=== PATIENT | female | born 1960 | race Caucasian/White ===

== ENCOUNTER 2019-03-12 15:16 | Emergency (ER) | payer BC ==
[2019-03-12] MEDS ORDERED: HYDROmorphone 1 MG/ML Syringe IVPUSH ONE (15:52)
--- NOTE | 2019-03-12 15:52 | EDM.PDOC ---
ED HPI GENERAL MEDICAL PROBLEM - General Chief Complaint: General Stated Complaint: KIDNEY STONE Time Seen by Provider: 03/12/19 15:20 - History of Present Illness INITIAL COMMENTS - FREE TEXT/NARRATIVE: 58-year-old female reports warts to the emergency room with complaints of pain nausea vomiting and flank pain. She was seen February 19 with flank pain nausea and vomiting and a CT scan showed a calculus on the right ureter. She has follow -up appointment with urology this coming Friday. She's had a reoccurrence today of her flank pain I once again. She reports no change in her symptoms from prior. She states that this feels just like her acute episode she had on 19 February. She did have some pain medications at home she's been taking hydrocodone and Zofran ODT for nausea. Her pain has been on the right side and is now radiated into her groin. She has mild nausea at this time. She reports colicky pain rating it a 8 out of 10. She denies any current blood in her urine. Onset: Today Onset Date: 03/12/19 Duration: Hour(s):, Recurring Location: Reports: Back (Right flank), Radiates to (Right groin) Quality: Reports: Same as Previous Episode Severity: Severe Improves with: Reports: None Worsens with: Reports: None Context: Reports: Activity Associated Symptoms: Reports: Nausea/Vomiting Treatments SHIP FASTENER: Reports: Other Medication(s) Right Lower Abdomen Pain Score (Numeric/FACES): 7 - Related Data Allergies Allergy/AdvReac Type Severity Reaction Status Date / Time No Known Allergies Allergy Verified 03/12/19 15:29 Home Meds: Home Meds Acetaminophen/HYDROcodone [[place] 325-5 MG] 1 tab PO Q6H 03/12/19 [History] DULoxetine HCl [Cymbalta] 60 mg PO DAILY 03/12/19 [History] Estrogens, Conjugated [Premarin] 0.625 mg PO DAILY 03/12/19 [History] Furosemide [Lasix] 20 mg PO DAILY PRN 03/12/19 [History] Ibuprofen [Ibu] 800 mg PO TIDMEALS 03/12/19 [History] Lisinopril [Zestril] 10 mg PO DAILY 03/12/19 [History] Ondansetron [Ondansetron ODT] 4 mg PO Q6H PRN 03/12/19 [History] Simvastatin 20 mg PO BEDTIME 03/12/19 [History] Tamsulosin HCl 0.4 mg PO DAILY 03/12/19 [History] Ustekinumab [Stelara] 45 mg SQ Q14D 03/12/19 [History] metFORMIN HCl [Metformin HCl ER] 500 mg PO DAILY 03/12/19 [History] polyethylene glycoL 3350 [MiraLAX] 17 gm PO DAILY PRN 03/12/19 [History] ED ROS GENERAL - Review of Systems Review Of Systems: Comprehensive ROS is negative, except as noted in HPI. ED EXAM, GENERAL - Physical Exam Exam: See Below Exam Limited By: No Limitations General Appearance: Alert, WD/WN, Moderate Distress Ears: Hearing Grossly Normal Throat/Mouth: Normal Voice, No Airway Compromise Head: Atraumatic, Normocephalic Neck: Normal Inspection, Supple Respiratory/Chest: No Respiratory Distress, Lungs Clear Cardiovascular: Regular Rate, Rhythm GI/Abdominal: Soft, Non-Tender, No Distention Back Exam: Normal Inspection, Full Range of Motion, CVA Tenderness (R) Extremities: Normal Inspection, Normal Range of Motion Neurological: Alert, Oriented, No Motor/Sensory Deficits Psychiatric: Normal Affect, Normal Mood Skin Exam: Warm, Dry, Intact, Normal Color, No Rash Lymphatic: No Adenopathy Course - Vital Signs Last Recorded V/S: Last Vital Signs Temp 98.4 F 03/12/19 15:19 Pulse 111 H 03/12/19 15:19 Resp 20 03/12/19 15:19 BP 145/91 H 03/12/19 15:19 Pulse Ox 98 03/12/19 15:19 - Orders/Labs/Meds Orders: Active Orders 24 hr Category Date Time Status CULTURE URINE [RM] Stat Lab 03/12/19 16:55 Received Sodium Chloride 0.9% [Normal Saline] 500 ml Med 03/12/19 16:00 Active IV .BOLUS Medication Orders Sodium Chloride (Normal Saline) 500 mls @ 1,000 mls/hr IV .BOLUS KANDIS Last Admin: 03/12/19 16:00 Dose: 1,000 mls/hr Labs: Laboratory Tests 03/12/19 Range/Units 16:55 Specimen Type Urincc Urine Color Light yellow (YELLOW) Urine Appearance Slightly cloudy H (CLEAR) Urine pH 6.0 (5.0-9.0) Ur Specific [place] 1.015 (1.005-1.030) Urine Protein Negative (NEGATIVE) mg/dL Urine Glucose (UA) Negative (NEGATIVE) mg/dL Urine Ketones Negative (NEGATIVE) mg/dL Urine Occult Blood Large H (NEGATIVE) Urine Nitrite Negative (NEGATIVE) Urine Bilirubin Negative (NEGATIVE) Urine Urobilinogen 0.2 (0.2-1.0) E.U./dL Ur Leukocyte Esterase Small H (NEGATIVE) Urine RBC 50-75 H (0-5) /HPF Urine WBC 10-20 H (0-5) /HPF Ur Epithelial Cells Moderate H /LPF Other Crystals Occasional /HPF Urine Bacteria Few (NONE TO FEW) /HPF Hyaline Casts Few H (NEGATIVE) /LPF Urine Mucus Moderate H (NEGATIVE) /LPF Meds: Medications Generic Name Dose Route Start Last Admin Trade Name Freq PRN Reason Stop Dose Admin Sodium Chloride 500 mls @ 1,000 mls/hr 03/12/19 16:00 03/12/19 16:00 Normal Saline IV 1,000 mls/hr .BOLUS KANDIS Administration Discontinued Medications Generic Name Dose Route Start Last Admin Trade Name Freq PRN Reason Stop Dose Admin Diphenhydramine HCl 50 mg 03/12/19 16:49 03/12/19 17:04 Benadryl PO 03/12/19 16:50 Not Given ONETIME ONE Diphenhydramine HCl 25 mg 03/12/19 16:52 03/12/19 17:00 Benadryl IVPUSH 03/12/19 16:53 25 mg ONETIME ONE Administration Hydromorphone HCl 1 mg 03/12/19 15:52 03/12/19 16:22 Dilaudid IVPUSH 03/12/19 15:53 1 mg ONETIME ONE Administration Ketorolac Tromethamine 30 mg 03/12/19 15:53 03/12/19 16:10 Toradol IVPUSH 03/12/19 15:54 30 mg ONETIME ONE Administration Ondansetron HCl 4 mg 03/12/19 15:56 03/12/19 16:05 Zofran IVPUSH 03/12/19 15:57 4 mg ONETIME ONE Administration - Re-Assessments/Exams Free Text/Narrative Re-Assessment/Exam: 03/12/19 17:01 Early rating her pain as 0 out of 10. Patient reports that she feels 100% better. Appearance of mild itching after given Dilaudid. Benadryl 25 mg IV was given Departure - Departure Time of Disposition: 17:52 Disposition: Home, Self-Care 01 Condition: Good Clinical Impression: Renal calculus, right - Discharge Information Instructions: Renal Colic, [id number] Referrals: Ami Jain MD [Primary Care Provider] - Forms: ED Department Discharge Sepsis Event Note - Evaluation Sepsis Screening Result: No Definite Risk - Focused Exam Vital Signs: Vital Signs Temp Pulse Resp BP Pulse Ox 03/12/19 15:19 98.4 F 111 H 20 145/91 H 98 Date Exam was Performed: 03/12/19 Time Exam was Performed: 17:52 - My Orders Last 24 Hours: My Active Orders 03/12/19 16:00 Sodium Chloride 0.9% [Normal Saline] 500 ml IV .BOLUS 03/12/19 16:55 CULTURE URINE [RM] Stat - Assessment/Plan Last 24 Hours: My Active Orders 03/12/19 16:00 Sodium Chloride 0.9% [Normal Saline] 500 ml IV .BOLUS 03/12/19 16:55 CULTURE URINE [RM] Stat Assessment:: Renal calculus right Plan: 1. Continue oral hydration 2. Recommend straining of the urine for identification if she should pass her stone. 3. Follow-up appointment with urology on Friday which is arty scheduled.
[2019-03-12] MEDS ORDERED: Ketorolac 30 MG/ML SDV IVPUSH ONE (15:53)
[2019-03-12] MEDS ORDERED: Ondansetron 4 MG/2 ML SDV IVPUSH ONE (15:56)
[2019-03-12] MEDS ORDERED: Sodium Chloride 0.9% 500 ML IV SCH (16:00)
[2019-03-12] MEDS ORDERED: diphenhydrAMINE 12.5 MG/5 ML Liquid 120 ML Bottle PO ONE (16:49)
[2019-03-12] MEDS ORDERED: diphenhydrAMINE 50 MG/ML SDV IVPUSH ONE (16:52)
== END 2019-03-12 18:05 | disposition home or self-care (01) ==
LOC: KA.ED 15:16
DX: N20.0 Calculus of kidney (principal)
CPT/HCPCS: 81001; 87086; 96374; 96375; 99284; J1170; J1200; J1885; J2405; J7040

== ENCOUNTER 2024-01-29 21:39 | Emergency (ER) | payer BC ==
[2024-01-29] MEDS: Ketorolac 30 MG/ML SDV IVPUSH ONE (21:57)
[2024-01-29] MEDS: Sodium Chloride 0.9% 1,000 ML IV ONE (22:35)
[2024-01-29] MEDS: Acetaminophen/HYDROcodone 325-5 MG Tab PO ONE (23:13)
== END 2024-01-29 23:20 | disposition home or self-care (01) ==
LOC: KA.ED 21:39
DX: N13.2 Hydronephrosis with renal and ureteral calculous obstruction (principal); Z79.84 Long term (current) use of oral hypoglycemic drugs; Z79.899 Other long term (current) drug therapy
CPT/HCPCS: 74176; 96361; 96374; 99284-25; A9270-GY; J1885; J7030